=== PATIENT | female | born 1985 | race American Indian/Alaskan Native ===

== ENCOUNTER 2017-01-29 13:45 | Inpatient (IN) | payer OTHER ==
--- NOTE | 2017-01-29 18:22 | History and Physical Report ---
History of Present Illness Date of examination: 01/29/17 Date of admission: 01/29/17 13:45 Chief complaint: Induction of labor History of present illness: Pt is a 31yo BF EDC 01/31/17; EGA 39 5/7 weeks presents from [facility] for induction of labor due to Oligohydramnios with an BROCK of 3.2cm and BPP 6/10. She received care at [facility] since 25 weeks and followed by [facility] for morbid Obesity (BMI 43.6). records are available and GBS Negative. Past History Past Medical History: no pertinent history Past Surgical History: no surgical history Family/Genetic History: none Social history: no significant social history, - Obstetrical History Expected Date of Delivery: 01/31/17 Actual Gestation: 39 Week(s) 6 Day(s) Medications and Allergies Allergies Allergy/AdvReac Type Severity Reaction Status Date / Time No Known Allergies Allergy Unverified 10/20/14 13:22 Home Medications Medication Instructions Recorded Confirmed Last Taken Type Acetaminophen [Acetaminophen TAB] 500 mg PO Q6HR #20 tablet 10/20/14 01/29/17 Unknown Rx Cephalexin [Keflex] 500 mg PO Q8HR #21 cap 10/20/14 Unknown Rx Ondansetron [Zofran TAB] 4 mg PO Q8HR PRN #20 tablet 10/20/14 01/29/17 Unknown Rx Vit-Fe Fumar-FA [ 1 tab PO QDAY #30 tablet 10/20/14 01/29/17 10:00 Rx Vitamin] Review of Systems All systems: negative - Vital Signs Vital signs: Vital Signs Pulse BP 94 H 135/70 01/29/17 14:55 01/29/17 14:55 Temp Pulse Resp BP Pulse Ox 99.2 F 97 H 18 135/70 75 L 01/29/17 15:48 01/29/17 17:37 01/29/17 15:48 01/29/17 15:48 01/29/17 17:37 - Physical Exam Breasts: Positive: deferred Cardiovascular: Regular rate Lungs: Positive: Clear to auscultation Abdomen: Positive: normal appearance Genitourinary (Female): Positive: normal external genitalia Vagina: Positive: normal moisture Uterus: Positive: enlarged Extremities: Positive: normal - Obstetrical FHR: category 2 Uterine Contraction Monitor Mode: External Cervical Dilatation: 2.5 Cervical Effacement Percentage: 80 station: -3 Uterine Contraction Pattern: Irregular Uterine Tone Measurement Phase: Contraction Uterine Contraction Intensity: Mild Results Result Diagrams: 01/29/17 19:45 All other labs normal. Ultrasound: report reviewed Assessment and Plan - Patient Problems (1) 39 weeks gestation of Onset Date: 01/29/17 Current Visit: Yes Status: Acute Plan to address problem: A: IUP @ 39 5/7 weeks Oligohydramnios Category 2 Tracing Morbid Obesity P: Admit to L&D for pitocin induction of labor Will give IV bolus and monitor closely (2) Oligohydramnios in [place]rig[place] in third trimester Onset Date: 01/29/17 Current Visit: Yes Status: Acute
[2017-01-29] MEDS ORDERED: STADOL IV PRN (18:34)
[2017-01-29] MEDS ORDERED: BRETHINE IVP PRN (18:34)
[2017-01-29] MEDS ORDERED: ePHEDrine SULFATE IV PRN (18:34)
[2017-01-29] MEDS ORDERED: XYLOCAINE 2% INFILTRATI ONE (18:34)
[2017-01-29] MEDS ORDERED: BRETHINE SUB-Q PRN (18:34)
[2017-01-29] MEDS ORDERED: MINERAL OIL PO PRN (18:34)
[2017-01-29] MEDS ORDERED: NARCAN 0.4 MG/1 ML IV PRN (18:34)
[2017-01-29] MEDS ORDERED: SUBLIMAZE IV PRN (18:34)
[2017-01-29] MEDS ORDERED: PHENERGAN PO PRN (18:34)
[2017-01-29] MEDS ORDERED: ZOFRAN IV PRN (18:34)
[2017-01-29] MEDS ORDERED: LACTATED RINGERS 1,000 ML ONE (18:36)
[2017-01-29] MEDS: LACTATED RINGERS 1,000 ML IV SCH (18:44)
[2017-01-29] MEDS ORDERED: PITOCin/NS 20 UNIT/1000ML DRIP 20 UNITS/1,000 ML BAG IV SCH (19:00)
[2017-01-29] MEDS ORDERED: PITOCin/NS 30 UNIT/500ML 30 UNITS/500 ML BAG IV SCH (19:00)
[2017-01-29 20:39] LABS: Hematocrit 39.6 % (30.3-42.9); Hemoglobin 13.2 gm/dl (10.1-14.3); Mean Corpuscular HGB Conc 33 % (30-34); Mean Corpuscular Hemoglobin 29 pg (28-32); Mean Corpuscular Volume 87 fl (79-97); Red Blood Count 4.55 M/mm3 (3.65-5.03); Red Cell Distribution Width 16.2 % (13.2-15.2); White Blood Count 12.4 K/mm3 (4.5-11.0)
[2017-01-29 21:50] LABS: Platelet Count 139 K/mm3 (140-440)
[2017-01-30] MEDS: PITOCin/NS 30 UNIT/500ML 30 UNITS/500 ML BAG IV SCH ×3 (08:34→10:40)
--- NOTE | 2017-01-30 10:45 | Progress Note ---
Assessment and Plan - Patient Problems (1) 39 weeks gestation of Onset Date: 01/29/17 Current Visit: Yes Status: Acute Plan to address problem: A: IUP @ 39 6/7 weeks Oligohydramnios Morbid Obesity P: Continue with pitocin induction of labor Expectant vaginal delivery (2) Oligohydramnios in [place] in third trimester Onset Date: 01/29/17 Current Visit: Yes Status: Acute Subjective - Subjective Date of service: 01/30/17 Principal diagnosis: IUP @ 39 6/7 weeks; Oligohydramnios Interval history: Pt is currently on pitocin 12mu/min and peggy q 2-3 mins. Patient reports: movement normal, contractions, no new complaints, no loss of fluid, no vaginal bleeding Objective - Vital Signs Vital Signs: Vital Signs - 12hr 01/29/17 01/29/17 01/29/17 22:50 22:55 23:09 Temperature Pulse Rate 84 74 90 Respiratory Rate Blood Pressure Blood Pressure [Left] O2 Sat by Pulse 98 98 98 Oximetry 01/29/17 01/29/17 01/29/17 23:14 23:19 23:24 Temperature Pulse Rate 82 71 79 Respiratory Rate Blood Pressure Blood Pressure [Left] O2 Sat by Pulse 98 99 98 Oximetry 01/29/17 01/29/17 01/29/17 23:29 23:34 23:38 Temperature Pulse Rate 81 69 71 Respiratory Rate Blood Pressure 103/58 Blood Pressure [Left] O2 Sat by Pulse 99 98 Oximetry 01/29/17 01/29/17 01/29/17 23:39 23:44 23:49 Temperature Pulse Rate 74 76 82 Respiratory Rate Blood Pressure Blood Pressure [Left] O2 Sat by Pulse 97 99 99 Oximetry 01/29/17 01/29/17 01/30/17 23:54 23:59 00:04 Temperature Pulse Rate 84 74 93 H Respiratory Rate Blood Pressure Blood Pressure [Left] O2 Sat by Pulse 99 98 97 Oximetry 01/30/17 01/30/17 01/30/17 00:09 00:14 00:19 Temperature Pulse Rate 69 71 66 Respiratory Rate Blood Pressure Blood Pressure [Left] O2 Sat by Pulse 99 98 98 Oximetry 01/30/17 01/30/17 01/30/17 00:24 00:29 00:34 Temperature Pulse Rate 68 70 86 Respiratory Rate Blood Pressure Blood Pressure [Left] O2 Sat by Pulse 98 100 99 Oximetry 01/30/17 01/30/17 01/30/17 00:38 00:39 00:44 Temperature Pulse Rate 83 77 83 Respiratory Rate Blood Pressure 111/64 Blood Pressure [Left] O2 Sat by Pulse 100 100 Oximetry 01/30/17 01/30/17 01/30/17 00:49 00:54 00:59 Temperature Pulse Rate 79 92 H 83 Respiratory Rate Blood Pressure Blood Pressure [Left] O2 Sat by Pulse 99 98 99 Oximetry 01/30/17 01/30/17 01/30/17 01:04 01:09 01:14 Temperature Pulse Rate 83 80 74 Respiratory Rate Blood Pressure Blood Pressure [Left] O2 Sat by Pulse 98 99 99 Oximetry 01/30/17 01/30/17 01/30/17 01:19 01:24 01:29 Temperature Pulse Rate 77 73 73 Respiratory Rate Blood Pressure Blood Pressure [Left] O2 Sat by Pulse 99 100 100 Oximetry 01/30/17 01/30/17 01/30/17 01:34 01:38 01:39 Temperature Pulse Rate 77 69 71 Respiratory Rate Blood Pressure 112/68 Blood Pressure [Left] O2 Sat by Pulse 99 100 Oximetry 01/30/17 01/30/17 01/30/17 01:44 01:49 01:54 Temperature Pulse Rate 75 78 72 Respiratory Rate Blood Pressure Blood Pressure [Left] O2 Sat by Pulse 99 99 99 Oximetry 01/30/17 01/30/17 01/30/17 01:59 02:04 02:09 Temperature Pulse Rate 71 77 83 Respiratory Rate Blood Pressure Blood Pressure [Left] O2 Sat by Pulse 100 99 100 Oximetry 01/30/17 01/30/17 01/30/17 02:14 02:19 02:24 Temperature Pulse Rate 79 81 80 Respiratory Rate Blood Pressure Blood Pressure [Left] O2 Sat by Pulse 100 100 99 Oximetry 01/30/17 01/30/17 01/30/17 02:29 02:34 02:38 Temperature Pulse Rate 76 70 68 Respiratory Rate Blood Pressure 111/61 Blood Pressure [Left] O2 Sat by Pulse 98 98 Oximetry 01/30/17 01/30/17 01/30/17 02:39 02:44 02:49 Temperature Pulse Rate 70 68 71 Respiratory Rate Blood Pressure Blood Pressure [Left] O2 Sat by Pulse 98 98 98 Oximetry 1101/30/17 01/30/17 02:54 02:59 03:04 Temperature Pulse Rate 78 70 68 Respiratory Rate Blood Pressure Blood Pressure [Left] O2 Sat by Pulse 98 98 98 Oximetry 01/30/17 01/30/17 01/30/17 03:09 03:14 03:19 Temperature Pulse Rate 72 74 74 Respiratory Rate Blood Pressure Blood Pressure [Left] O2 Sat by Pulse 98 98 98 Oximetry 01/30/17 01/30/17 01/30/17 03:24 03:29 03:34 Temperature Pulse Rate 83 87 71 Respiratory Rate Blood Pressure Blood Pressure [Left] O2 Sat by Pulse 99 99 99 Oximetry 01/30/17 01/30/17 01/30/17 03:38 03:39 03:44 Temperature Pulse Rate 69 78 67 Respiratory Rate Blood Pressure 101/63 Blood Pressure [Left] O2 Sat by Pulse 98 98 Oximetry 01/30/17 01/30/17 01/30/17 03:49 03:54 03:59 Temperature Pulse Rate 74 69 71 Respiratory Rate Blood Pressure Blood Pressure [Left] O2 Sat by Pulse 98 98 98 Oximetry 01/30/17 01/30/17 01/30/17 04:04 04:09 04:14 Temperature Pulse Rate 70 72 71 Respiratory Rate Blood Pressure Blood Pressure [Left] O2 Sat by Pulse 98 98 98 Oximetry 01/30/17 01/30/17 01/30/17 04:19 04:24 04:29 Temperature Pulse Rate 70 74 66 Respiratory Rate Blood Pressure Blood Pressure [Left] O2 Sat by Pulse 100 98 98 Oximetry 01/30/17 01/30/17 01/30/17 04:34 04:38 04:39 Temperature Pulse Rate 82 63 67 Respiratory Rate Blood Pressure 110/59 Blood Pressure [Left] O2 Sat by Pulse 99 98 Oximetry 01/30/17 01/30/17 01/30/17 04:44 04:49 04:54 Temperature Pulse Rate 86 67 70 Respiratory Rate Blood Pressure Blood Pressure [Left] O2 Sat by Pulse 100 98 98 Oximetry 01/30/17 01/30/17 01/30/17 04:59 05:04 05:09 Temperature Pulse Rate 83 73 80 Respiratory Rate Blood Pressure Blood Pressure [Left] O2 Sat by Pulse 99 99 100 Oximetry 01/30/17 01/30/17 01/30/17 05:14 05:19 05:24 Temperature Pulse Rate 76 74 87 Respiratory Rate Blood Pressure Blood Pressure [Left] O2 Sat by Pulse 99 100 99 Oximetry 01/30/17 01/30/17 01/30/17 05:29 05:34 05:38 Temperature Pulse Rate 75 79 74 Respiratory Rate Blood Pressure 103/57 Blood Pressure [Left] O2 Sat by Pulse 100 98 Oximetry 01/30/17 01/30/17 01/30/17 05:39 05:44 05:49 Temperature Pulse Rate 75 82 76 Respiratory Rate Blood Pressure Blood Pressure [Left] O2 Sat by Pulse 100 99 100 Oximetry 01/30/17 01/30/17 01/30/17 05:54 05:59 06:00 Temperature Pulse Rate 70 66 Respiratory Rate Blood Pressure Blood Pressure [Left] O2 Sat by Pulse 98 87 77 L Oximetry 01/30/17 01/30/17 01/30/17 06:05 06:10 06:15 Temperature Pulse Rate 67 88 66 Respiratory Rate Blood Pressure Blood Pressure [Left] O2 Sat by Pulse 99 98 99 Oximetry 01/30/17 01/30/17 01/30/17 06:20 06:25 06:30 Temperature Pulse Rate 75 63 69 Respiratory Rate Blood Pressure Blood Pressure [Left] O2 Sat by Pulse 97 97 97 Oximetry 01/30/17 01/30/17 01/30/17 06:35 06:38 06:40 Temperature Pulse Rate 90 74 64 Respiratory Rate Blood Pressure 102/64 Blood Pressure [Left] O2 Sat by Pulse 98 98 Oximetry 01/30/17 01/30/17 01/30/17 06:45 06:50 06:55 Temperature Pulse Rate 68 82 80 Respiratory Rate Blood Pressure Blood Pressure [Left] O2 Sat by Pulse 100 99 99 Oximetry 01/30/17 01/30/17 01/30/17 07:00 07:04 07:05 Temperature Pulse Rate 71 65 80 Respiratory Rate Blood Pressure Blood Pressure [Left] O2 Sat by Pulse 100 89 81 L Oximetry 01/30/17 01/30/17 01/30/17 07:47 07:48 07:50 Temperature 97.8 F Pulse Rate 76 79 75 Respiratory 16 Rate Blood Pressure 117/54 Blood Pressure 117/54 [Left] O2 Sat by Pulse 100 99 Oximetry 01/30/17 01/30/17 01/30/17 07:53 07:58 08:03 Temperature Pulse Rate 72 72 85 Respiratory Rate Blood Pressure Blood Pressure [Left] O2 Sat by Pulse 100 100 99 Oximetry 01/30/17 01/30/17 01/30/17 08:08 08:13 08:18 Temperature Pulse Rate 74 70 68 Respiratory Rate Blood Pressure Blood Pressure [Left] O2 Sat by Pulse 100 100 100 Oximetry 01/30/17 01/30/17 01/30/17 08:23 08:28 08:33 Temperature Pulse Rate 68 80 69 Respiratory Rate Blood Pressure Blood Pressure [Left] O2 Sat by Pulse 100 99 98 Oximetry 01/30/17 01/30/17 01/30/17 08:38 08:43 08:48 Temperature Pulse Rate 70 69 69 Respiratory Rate Blood Pressure 107/66 Blood Pressure [Left] O2 Sat by Pulse 100 99 100 Oximetry 01/30/17 01/30/17 01/30/17 08:53 08:58 09:03 Temperature Pulse Rate 66 79 81 Respiratory Rate Blood Pressure Blood Pressure [Left] O2 Sat by Pulse 100 100 98 Oximetry 01/30/17 01/30/17 01/30/17 09:08 09:13 09:18 Temperature Pulse Rate 80 82 84 Respiratory Rate Blood Pressure Blood Pressure [Left] O2 Sat by Pulse 99 99 98 Oximetry 01/30/17 01/30/17 01/30/17 09:23 09:28 09:33 Temperature Pulse Rate 78 77 74 Respiratory Rate Blood Pressure Blood Pressure [Left] O2 Sat by Pulse 99 100 99 Oximetry 01/30/17 01/30/17 01/30/17 09:38 09:43 09:48 Temperature Pulse Rate 89 78 83 Respiratory Rate Blood Pressure 121/71 Blood Pressure [Left] O2 Sat by Pulse 100 100 98 Oximetry 01/30/17 01/30/17 01/30/17 09:53 09:58 10:03 Temperature Pulse Rate 75 74 86 Respiratory Rate Blood Pressure Blood Pressure [Left] O2 Sat by Pulse 100 99 99 Oximetry 01/30/17 01/30/17 01/30/17 10:08 10:13 10:18 Temperature Pulse Rate 85 83 87 Respiratory Rate Blood Pressure Blood Pressure [Left] O2 Sat by Pulse 98 99 99 Oximetry 01/30/17 01/30/17 01/30/17 10:23 10:28 10:33 Temperature Pulse Rate 76 88 75 Respiratory Rate Blood Pressure Blood Pressure [Left] O2 Sat by Pulse 100 100 99 Oximetry 01/30/17 10:45 Temperature Pulse Rate 83 Respiratory Rate Blood Pressure 125/71 Blood Pressure [Left] O2 Sat by Pulse 98 Oximetry - Exam Breasts: deferred Lungs: Clear to auscultation Abdomen: Present: normal appearance FHR: category 1 Uterine Contraction Monitor Mode: External Cervical Dilatation: 7 Cervical Effacement Percentage: 80 station: -3 Uterine Contraction Pattern: Regular Uterine Tone Measurement Phase: Contraction Uterine Contraction Intensity: Strong/Firm - Labs Labs: Abnormal Labs 01/29/17 19:45 WBC 12.4 H RDW 16.2 H Plt Count 139 L Laboratory Results - last 24 hr 01/29/17 01/29/17 19:45 19:52 WBC 12.4 H RBC 4.55 Hgb 13.2 Hct 39.6 MCV 87 MCH 29 MCHC 33 RDW 16.2 H Plt Count 139 L Blood Type B POSITIVE Antibody Screen Negative
[2017-01-30] MEDS ORDERED: ePHEDrine SULFATE ONE (12:14)
[2017-01-30] MEDS: LACTATED RINGERS 1,000 ML IV SCH (12:25)
[2017-01-30] MEDS ORDERED: ePHEDrine SULFATE IV PRN (12:47)
[2017-01-30] MEDS ORDERED: NARCAN 2 MG/2 ML IV PRN (12:47)
--- NOTE | 2017-01-30 12:47 | Anesthesia Consultation ---
Anesthesia Consult and Med Hx Date of service: 01/30/17 - Airway Anesthetic Teeth Evaluation: Good ROM Head & Neck: Adequate Mental/Hyoid Distance: Adequate Mallampati Class: Class III Intubation Access Assessment: Possibly Difficult - Pre-Operative Health Status ASA Pre-Surgery Classification: ASA3 Proposed Anesthetic Plan: Epidural, Spinal - Pulmonary Hx Asthma: No COPD: No Hx Pneumonia: No - Cardiovascular System Hx Hypertension: No - Central Nervous System Hx Seizures: No Hx Psychiatric Problems: No - Endocrine Hx Renal Disease: No Hx End Stage Renal Disease: No Hx Hypothyroidism: No Hx Hyperthyroidism: No - Hematic Hx Anemia: No Hx Sickle Cell Disease: Yes - Other Systems Hx Alcohol Use: No Hx Obesity: Yes (Morbid obesity BMI 43.6)
[2017-01-30] MEDS ORDERED: fentaNYL-BUPIV 2 MCG/ML-0.125% 200 MCG/100 ML BAG EPIDURAL SCH (13:00)
[2017-01-30] MEDS ORDERED: XYLOCAINE 2% INFILTRATI ONE (13:04)
--- NOTE | 2017-01-30 13:09 | Procedure Note ---
OB Delivery Note - Delivery Date of Delivery: 01/30/17 Surgeon: KRISTINA HAMM Estimated blood loss: 100cc - Vaginal Delivery presentation: vertex Delivery position: OA Intrapartum events: hydramnios Delivery induction: oxytocin Delivery augmentation: rupture of membranes, pitocin Delivery monitor: external FHT, external uterine Route of delivery: Delivery placenta: spontaneous Delivery cord: nuchal cord, 3 umbilical vessels Episiotomy: none Delivery laceration: 1st degree (perineal) Delivery repair: vicryl Anesthesia: local Delivery comments: delivered OA and placed on Mom's chest for [id number] bonding and delayed cord clamping. - Infant A at 1 minute: 8 at 5 minutes: 9 Gender: Female (2501gms)
[2017-01-30] MEDS ORDERED: BENADRYL PO PRN (13:10)
[2017-01-30] MEDS ORDERED: NORCO 5/325 PO PRN (13:10)
[2017-01-30] MEDS ORDERED: TUCKS PAD TP PRN (13:10)
[2017-01-30] MEDS ORDERED: ZOFRAN IV PRN (13:10)
[2017-01-30] MEDS ORDERED: TYLENOL PO PRN (13:10)
[2017-01-30] MEDS ORDERED: LANSINOH TP PRN (13:10)
[2017-01-30] MEDS ORDERED: PHENERGAN PO PRN (13:10)
[2017-01-30] MEDS ORDERED: DULCOLAX PR PRN (13:10)
[2017-01-30] MEDS ORDERED: PHENERGAN PR PRN (13:10)
[2017-01-30] MEDS ORDERED: MILK OF MAGNESIA PO PRN (13:10)
[2017-01-30] MEDS ORDERED: SODIUM CHLORIDE FLUSH SYRINGE 10 ML IV NR (14:00)
[2017-01-30] MEDS ORDERED: PITOCin/NS 20 UNIT/1000ML DRIP 20 UNITS/1,000 ML BAG IV SCH (14:00)
[2017-01-30] MEDS: MOTRIN PO SCH ×2 (16:24→21:58)
[2017-01-30] MEDS: FEOSOL PO SCH (21:59)
[2017-01-30] MEDS: COLACE PO SCH (21:59)
[2017-01-30] MEDS ORDERED: DERMOPLAST TP PRN (23:42)
[2017-01-31 00:38] LABS: Hematocrit 37.4 % (30.3-42.9); Hemoglobin 12.2 gm/dl (10.1-14.3)
[2017-01-31] MEDS: MOTRIN PO SCH ×3 (05:47→23:42)
--- NOTE | 2017-01-31 07:14 | Progress Note ---
Assessment and Plan - Patient Problems (1) 39 weeks gestation of Onset Date: 01/29/17 Current Visit: Yes Status: Resolved (2) Oligohydramnios in madrigal in third trimester Onset Date: 01/29/17 Current Visit: Yes Status: Resolved (3) (normal spontaneous vaginal delivery) Onset Date: 01/31/17 Current Visit: Yes Status: Resolved Plan to address problem: A; S/P - PPD #1 Doing well P: May go home today Subjective - Subjective Date of service: 01/31/17 Principal diagnosis: s/p - PPD #1 Interval history: Pt is feeling well without complaints. Bleeding improved. Patient reports: appetite normal, voiding normally, pain well controlled, ambulating normally [place]: doing well, nursing well Objective - Vital Signs Latest vital signs: Vital Signs Temp Pulse Resp BP BP Pulse Ox 01/31/17 05:47 20 01/31/17 00:30 98.6 F 66 18 101/69 01/30/17 19:35 98.6 F 77 16 121/72 01/30/17 15:30 98.8 F 92 H 20 112/69 98 01/30/17 14:17 83 99 01/30/17 14:13 125 H 69 L 01/30/17 14:12 100 H 100 01/30/17 14:07 101 H 99 01/30/17 14:02 95 H 100 01/30/17 13:57 87 100 01/30/17 13:54 84 136/60 01/30/17 13:52 95 H 100 01/30/17 13:47 98 H 100 01/30/17 13:42 98 H 100 01/30/17 13:37 105 H 99 01/30/17 13:32 91 H 100 01/30/17 13:27 30 L 94 01/30/17 13:07 100 H 99/51 01/30/17 13:06 85 94/50 01/30/17 12:59 99 H 88/49 01/30/17 12:58 107 H 100 01/30/17 12:57 118 H 98/52 01/30/17 12:55 86 103/59 01/30/17 12:53 85 105/62 100 01/30/17 12:51 75 100/57 01/30/17 12:49 78 108/53 11/16/17 12:48 76 99 11/16/17 12:43 83 126/70 99 11/16/17 12:41 91 H 131/74 11/16/17 12:38 90 135/82 11/16/17 12:35 101 H 99 11/16/17 12:30 98 H 98 11/16/17 12:25 98 H 98 11/16/17 12:20 99 H 98 11/16/17 12:15 100 H 97 11/16/17 12:10 100 H 98 11/16/17 12:09 94 H 94 11/16/17 12:05 101 H 98 11/16/17 12:00 99 H 99 11/16/17 11:55 106 H 99 11/16/17 11:50 80 98 11/16/17 11:45 83 97 11/16/17 11:40 82 100 11/16/17 11:38 80 126/61 11/16/17 11:35 92 H 99 11/16/17 11:30 81 98 11/16/17 11:25 96 H 97 11/16/17 11:20 81 98 11/16/17 11:15 88 100 11/16/17 11:10 80 98 11/16/17 11:05 81 98 11/16/17 11:00 82 98 11/16/17 10:55 82 98 11/16/17 10:50 70 99 11/16/17 10:45 83 125/71 98 11/16/17 10:33 75 99 11/16/17 10:28 88 100 11/16/17 10:23 76 100 11/16/17 10:18 87 99 11/16/17 10:13 83 99 11/16/17 10:08 85 98 11/16/17 10:03 86 99 11/16/17 09:58 74 99 11/16/17 09:53 75 100 11/16/17 09:48 83 98 11/16/17 09:43 78 100 11/16/17 09:38 89 121/71 100 11/16/17 09:33 74 99 11/16/17 09:28 77 100 11/16/17 09:23 78 99 11/16/17 09:18 84 98 11/16/17 09:13 82 99 11/16/17 09:08 80 99 11/16/17 09:03 81 98 11/16/17 08:58 79 100 01/30/17 08:53 66 100 01/30/17 08:48 69 100 01/30/17 08:43 69 99 01/30/17 08:38 70 107/66 100 01/30/17 08:33 69 98 01/30/17 08:28 80 99 01/30/17 08:23 68 100 01/30/17 08:18 68 100 01/30/17 08:13 70 100 01/30/17 08:08 74 100 01/30/17 08:03 85 99 01/30/17 07:58 72 100 01/30/17 07:53 72 100 01/30/17 07:50 75 117/54 01/30/17 07:48 79 99 01/30/17 07:47 97.8 F 76 16 117/54 100 Intake and Output 01/30/17 01/31/17 01/31/17 22:59 06:59 14:59 Intake Total 500 200 Balance 500 200 Intake: Oral 200 200 Intake, Free Water 300 Other: Total, Intake Amount 200 200 # Voids Void 1 - Exam Breasts: Present: deferred Cardiovascular: Present: Regular rate Lungs: Present: Clear to auscultation Abdomen: Present: normal appearance, soft Uterus: Present: normal, firm, fundal height below umbilicus Extremities: Present: normal - Labs Labs: Laboratory Tests 01/29/17 01/29/17 01/29/17 16:40 19:45 19:52 WBC 12.4 H RBC 4.55 Hgb 13.2 Hct 39.6 MCV 87 MCH 29 MCHC 33 RDW 16.2 H Plt Count 139 L RPR Nonreactive Blood Type B POSITIVE Antibody Screen Negative 01/31/17 00:22 WBC RBC Hgb 12.2 Hct 37.4 MCV MCH MCHC RDW Plt Count RPR Blood Type Antibody Screen
[2017-01-31] MEDS ORDERED: PRENATAL VITAMIN PO SCH (10:00)
--- NOTE | 2017-01-31 13:02 | Discharge Summary ---
Providers - Providers Date of Admission: 01/29/17 13:45 Date of discharge: 01/31/17 Attending physician: KRISTINA HAMM Primary care physician: KRISTINA HAMM Hospitalization Reason for admission: induction of labor, IUP at term, other (Oligohydramnios) Delivery: Episiotomy: none Laceration: 1st degree Other procedures: none complications: none Discharge diagnosis: IUP at term delivered [place] baby: female Hospital course: Unremarkable. Condition at discharge: Good Disposition: DC-01 TO HOME OR SELFCARE - Discharge Diagnoses (1) 39 weeks gestation of Status: Resolved (2) Oligohydramnios in madrig[place] in third trimester Status: Resolved (3) (normal spontaneous vaginal delivery) Status: Resolved Plan - Discharge Medications Prescriptions: Ibuprofen [Motrin 600 MG tab] 600 mg PO Q6H #30 tablet Vit-Fe Fumar-FA [ Vitamin] 1 each PO QDAY #30 tablet - Provider Discharge Summary Activity: routine, no sex for 6 weeks, no heavy lifting 4 weeks, no strenuous exercise Diet: routine Instructions: routine Additional instructions: [] Smoking cessation referral if applicable(refer to patient education folder for contact #) [] Refer to [facility] Booklet Call your doctor immediately for: * Fever > 100.5 * Heavy vaginal bleeding ( >1 pad per hour) * Severe persistent headache * Shortness of breath * Reddened, hot, painful area to leg or breast * Drainage or odor from incision. * Keep incision clean and dry at all times and follow doctor's instructions regarding bathing/showering - Follow up plan Follow up: KRISTINA HAMM MD [Primary Care Provider] - 6 Weeks
[2017-01-31] MEDS ORDERED: M-M-R II VACCINE SUB-Q ONE (13:10)
[2017-01-31] MEDS ORDERED: BOOSTRIX IM ONE (13:10)
[2017-01-31] MEDS: COLACE PO SCH (23:42)
[2017-01-31] MEDS: FEOSOL PO SCH (23:45)
[2017-02-01] MEDS: MOTRIN PO SCH ×2 (05:56→12:20)
[2017-02-01] MEDS ORDERED: BOOSTRIX IM ONE (06:00)
[2017-02-01] MEDS: COLACE PO SCH ×2 (12:52→14:04)
[2017-02-01] MEDS: FEOSOL PO SCH (14:03)
[2017-02-01 19:04] VITALS: BP 137/83
== END 2017-02-01 17:25 | disposition home or self-care (01) | DRG 775 ==
LOC: LD 13:45 → OB 01-30 15:50
PROVIDERS: ADMIT Obstetrics & Gynecology; ATTEND Obstetrics & Gynecology
PROC: 10E0XZZ Delivery of Products of Conception, External Approach (ICD-10-PCS; principal; 2017-01-30)
PROC: 0HQ9XZZ Repair Perineum Skin, External Approach (ICD-10-PCS; 2017-01-30)
PROC: 3E033VJ Introduction of Other Hormone into Peripheral Vein, Percutaneous Approach (ICD-10-PCS; 2017-01-30)
PROC: 3E0234Z Introduction of Serum, Toxoid and Vaccine into Muscle, Percutaneous Approach (ICD-10-PCS; 2017-01-31)
DX: O41.03X0 Oligohydramnios, third trimester, not applicable or unspecified (principal); Z68.41 Body mass index [BMI] 40.0-44.9, adult; O99.214 Obesity complicating childbirth; E66.01 Morbid (severe) obesity due to excess calories; O69.81X0 Labor and delivery complicated by cord around neck, without compression, not applicable or unspecified; O70.0 First degree perineal laceration during delivery; Z3A.39 39 weeks gestation of pregnancy; Z37.0 Single live birth; Z23 Encounter for immunization
CPT/HCPCS: 36415; 85014; 85018; 85027; 86592; 86850; 86900; 86901; 90471; 90715; 99211; G0463; J2590; J3010; J7120